=== PATIENT | female | born 1970 | race Caucasian/White ===

== ENCOUNTER 2023-09-19 22:31 | Emergency (ER) | payer BC ==
[2023-09-19 22:39] VITALS: BMI 26.4
[2023-09-19 23:37] LABS: HEMATOCRIT 38.6 % (32.4-45.2); HEMOGLOBIN 13.1 GM/dL (10.7-15.3); MCH 31.2 pg (25.7-33.7); MCHC 33.9 g/dl (32.0-36.0); MEAN CELL VOLUME 92.2 fl (80-96); MEAN PLT VOLUME 9.8 fl (7.5-11.1); PLATELET COUNT 265 10^3/uL (134-434); RBC 4.19 M/mm3 (3.60-5.2); RDW 13.9 % (11.6-15.6)
[2023-09-19 23:44] LABS: INR 0.99 (0.83-1.09); PROTHROMBIN TIME (PATIENT) 11.2 SEC (9.7-13.0)
[2023-09-19 23:47] LABS: ACTIVATED PTT 31.7 SECONDS (25.2-36.5)
[2023-09-19 23:50] LABS: POTASSIUM 5.7 mmol/L (3.5-5.1)
[2023-09-19 23:52] LABS: ALBUMIN 3.9 g/dl (3.4-5.0); BLOOD UREA NITROGEN 9.6 mg/dL (7-18); CALCIUM 9.3 mg/dL (8.5-10.1)
[2023-09-19 23:55] LABS: CREATININE 0.5 mg/dL (0.55-1.3)
[2023-09-19 23:57] LABS: BILIRUBIN,TOTAL 0.4 mg/dL (0.2-1); TOT PROT 7.2 g/dl (6.4-8.2)
[2023-09-20 01:33] VITALS: BP 111/75; PULSE 74; RESP 15; TEMP 98.4
[2023-09-20 02:21] LABS: POTASSIUM 3.8 mmol/L (3.5-5.1)
[2023-09-20 02:23] LABS: CALCIUM 9.3 mg/dL (8.5-10.1)
[2023-09-20 02:24] LABS: BLOOD UREA NITROGEN 8.8 mg/dL (7-18)
[2023-09-20 02:26] LABS: CREATININE 0.6 mg/dL (0.55-1.3)
== END 2023-09-20 02:49 | disposition home or self-care (01) ==
LOC: JER 22:31
DX: R07.9 Chest pain, unspecified (principal); Y93.G3 Activity, cooking and baking; Z20.822 Contact with and (suspected) exposure to COVID-19
CPT/HCPCS: 0241U-QW; 36415; 71045-TC-FY; 80048; 80053; 84484; 85025; 85610; 85730; 93005; 93010; 99285-25